=== PATIENT | male | born 1975 | race Caucasian/White ===

== ENCOUNTER 2017-04-10 16:24 | Emergency (ER) | payer BC ==
[~2017-04-10 16:24] MED LIST: Sodium Chloride Irrig Solution 250 ML BOT ONE; Sterile Water Irrigation 250 ML BOT ONE
[2017-04-10] MEDS ORDERED: Adacel (T-DAP) 0.5 ML VIAL ONE (16:42)
[2017-04-10] MEDS ORDERED: Lidocaine 2% w/Epinephrine 1:200K 20 ML VIAL ONE (16:42)
[2017-04-10] MEDS ORDERED: Triple Antibiotic Oint 1 GM Packet ONE (16:55)
== END 2017-04-10 17:04 | disposition home or self-care (01) ==
LOC: MADERS 16:24
DX: S61.411A Laceration without foreign body of right hand, initial encounter (principal); W26.0XXA Contact with knife, initial encounter
CPT/HCPCS: 12001; 90471; 90715; J2001

== ENCOUNTER 2019-12-09 13:34 | Emergency (ER) | payer OTHER ==
[2019-12-10 11:18] LABS: SARS-CoV-2 MS2 Positive; SARS-CoV-2 N Gene Negative; SARS-CoV-2 S Gene Negative; SARS-CoV-2 orf1ab Negative
== END 2019-12-09 14:11 | disposition home or self-care (01) ==
LOC: MADERS 13:34
DX: J06.9 Acute upper respiratory infection, unspecified (principal); Z20.828 Contact with and (suspected) exposure to other viral communicable diseases
CPT/HCPCS: 87635; 99283; U0003